=== PATIENT | male | born 1955 | race Caucasian/White ===

== ENCOUNTER 2021-12-16 08:47 | Emergency (ER) | payer OTHER, SELFPAY ==
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
[2021-12-16 08:47] VITALS: BP 141/78; PULSE 74; RESP 15; TEMP 36.7; O2SAT 97
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
[2021-12-16] MEDS: ACETAMINOPHEN 325 MG TABLET 650 MG PO (09:47)
[2021-12-16] MEDS: IBUPROFEN 600 MG TABLET PO (09:47)
[2021-12-16 10:14] VITALS: BP 123/79; PULSE 88; RESP 15; O2SAT 99
== END 2021-12-16 10:16 | disposition home or self-care (01) ==
PROVIDERS: Emergency Provider Emergency Medicine
DX: S29.012A Strain of muscle and tendon of back wall of thorax, initial encounter (principal); M48.14 Ankylosing hyperostosis [Forestier], thoracic region; M47.814 Spondylosis without myelopathy or radiculopathy, thoracic region; V63.5XXA Driver of heavy transport vehicle injured in collision with car, pick-up truck or van in traffic accident, initial encounter
CPT/HCPCS: 72128; 99284; A9270